=== PATIENT | female | born 1965 | race Caucasian/White ===

== ENCOUNTER → 2018-11-08 | Outpatient (CLI) | payer OTHER ==
--- NOTE | 2018-11-09 12:15 | MM ---
Reason for exam: screening (asymptomatic). Last mammogram was performed 1 year and 4 months ago. History: Patient history of other cancer. Physical Findings: A clinical breast exam by your physician is recommended on an annual basis and results should be correlated with mammographic findings. MG 3D Screening Mammo W/Cad Bilateral CC and MLO view(s) were taken. Prior study comparison: July 14, 2017, mammogram, performed at [facility]. May 27, 2016, mammogram, performed at [facility]. July 17, 2014, bilateral MG screening mammo w CAD. August 11, 2011, CAD bilateral diagnostic mammogram. The breast tissue is heterogeneously dense. This may lower the sensitivity of mammography. There is no discrete abnormality. No significant changes when compared with prior studies. ASSESSMENT: Negative, BI-RAD 1 RECOMMENDATION: Routine screening mammogram of both breasts in 1 year.
== END ==
LOC: RADMAMWWP 15:55
PROVIDERS: ATTEND Internal Medicine
DX: Z12.31 Encounter for screening mammogram for malignant neoplasm of breast (principal)
CPT/HCPCS: 77063; 77067

== ENCOUNTER → 2018-11-20 | Outpatient (CLI) | payer OTHER ==
--- NOTE | 2018-11-20 12:53 | MR ---
EXAMINATION TYPE: MR iac wo/w con DATE OF EXAM: 11/20/2018 COMPARISON: NONE HISTORY: acoustic nerve disorder left-sided and chronic sinusitis per order. Left-sided hearing loss per patient. TECHNIQUE: Multiplanar, multisequence images of the brain and brainstem is performed without and with IV contras t, utilizing 9 mL intravenous Gadavist . Acoustic nerve disorder protocol. FINDINGS: Diffusion weighted images demonstrate no evidence of a recent infarct or other diffusion ab normality. There is no worrisome extra-axial fluid collection. There is mild ventricular and sulcal prominence. There are scattered foci of T2 hyperintensity seen throughout the white matter bilaterall y. Approximately 20 small scattered lesions are seen. Lesions are nonspecific in appearance and distr ibution presumed on basis of product of chronic small vessel ischemic change in patient of this age. Midline structures demonstrate empty sella morphology. The craniocervical junction appears within no rmal limits. Normal vascular flow voids are present. Mild mucosal thickening bilateral ethmoid sinuse s is seen. Remainder paranasal sinuses are clear. Nasal septum is deviated to right of midline. There is no suspicious opacification of mastoid air cells bilaterally. Vestibulocochlear complexes ar e symmetric and felt within normal limits. There is no suspicious enhancing cerebellopontine angle ma ss identified bilaterally. IMPRESSION: 1. No significant finding seen to account for patient's left-sided hearing loss. 2. Background mild diffuse age-related cerebral atrophy and mild to moderate chronic small vessel isc hemic change. 3. Mild chronic ethmoid sinus disease.
== END | disposition home or self-care (01) ==
LOC: RADMRIMAIN 07:51
PROVIDERS: ATTEND Otolaryngology
DX: G31.1 Senile degeneration of brain, not elsewhere classified (principal); I67.82 Cerebral ischemia
CPT/HCPCS: 70553; A9585

== ENCOUNTER → 2020-04-04 | Outpatient (CLI) | payer OTHER ==
--- NOTE | 2020-04-07 10:03 | MM ---
Reason for exam: screening (asymptomatic). Last mammogram was performed 1 year and 5 months ago. History: Patient history of other cancer. Physical Findings: A clinical breast exam by your physician is recommended on an annual basis and results should be correlated with mammographic findings. MG 3D Screening Mammo W/Cad Bilateral CC and MLO view(s) were taken. Prior study comparison: November 08, 2018, bilateral MG 3d screening mammo w/cad. July 14, 2017, mammogram, performed at [facility]. The breast tissue is heterogeneously dense. This may lower the sensitivity of mammography. There is chronic nodularity in the right breast. No significant changes when compared with prior studies. ASSESSMENT: Benign, BI-RAD 2 RECOMMENDATION: Routine screening mammogram of both breasts in 1 year.
== END | disposition home or self-care (01) ==
LOC: RADMAMWWP 11:17
PROVIDERS: ATTEND Internal Medicine
DX: Z12.31 Encounter for screening mammogram for malignant neoplasm of breast (principal)
CPT/HCPCS: 77063; 77067

== ENCOUNTER → 2021-04-10 | Outpatient (CLI) | payer OTHER ==
--- NOTE | 2021-04-14 09:07 | MM ---
Reason for exam: screening (asymptomatic). Last mammogram was performed 1 year ago. History: Patient is postmenopausal and history of other cancer. Took hormonal contraceptives for 1 year. Physical Findings: A clinical breast exam by your physician is recommended on an annual basis and results should be correlated with mammographic findings. MG 3D Screening Mammo W/Cad Bilateral CC and MLO view(s) were taken. Prior study comparison: April 04, 2020, bilateral MG 3d screening mammo w/cad. November 08, 2018, bilateral MG 3d screening mammo w/cad. July 14, 2017, mammogram, performed at [facility]. There are scattered fibroglandular densities. There is chronic nodularity in the right breast. No significant changes when compared with prior studies. ASSESSMENT: Benign, BI-RAD 2 RECOMMENDATION: Routine screening mammogram of both breasts in 1 year.
== END | disposition home or self-care (01) ==
LOC: RADMAMWWP 16:35
PROVIDERS: ATTEND Internal Medicine
DX: Z12.31 Encounter for screening mammogram for malignant neoplasm of breast (principal); Z78.0 Asymptomatic menopausal state; Z85.9 Personal history of malignant neoplasm, unspecified; Z79.3 Long term (current) use of hormonal contraceptives
CPT/HCPCS: 77063; 77067

== ENCOUNTER → 2022-04-16 | Outpatient (CLI) | payer OTHER ==
--- NOTE | 2022-04-19 19:27 | MM ---
Reason for Exam: Screening (asymptomatic). Last screening mammogram was performed 12 month(s) ago. Patient History: Menarche at age 12. First Full-Term at age 27. Postmenopausal. Other cancer. Patient used Hormonal Contraceptives for 1 year. Risk Values: Megan 5 year model risk: 1.4%. NCI Lifetime model risk: 8.9%. Prior Study Comparison: 11/08/2018 Bilateral Screening Mammogram, [facility]. 04/04/2020 Bilateral Screening Mammogram, [facility]. 04/10/2021 Bilateral Screening Mammogram, [facility]. Tissue Density: There are scattered fibroglandular densities. Findings: Analyzed By CAD. Chronic nodularity upper outer quadrant right breast compatible with intramammary lymph nodes. Asymmetric density posterior medial left CC view does not persist on tomographic images. No significant change from prior exams. Overall Assessment: Benign, BI-RAD 2 Management: Screening Mammogram of both breasts in 1 year. 1. Patient should continue monthly self breast exams. 2. A clinical breast exam by your physician is recommended on an annual basis. 3. This exam should not preclude additional follow-up of suspicious palpable abnormalities. Electronically signed and approved by: Karissa Pina M.D. Radiologist
== END | disposition home or self-care (01) ==
LOC: RADMAMWWP 13:54
PROVIDERS: ATTEND Internal Medicine
DX: Z12.31 Encounter for screening mammogram for malignant neoplasm of breast (principal); Z78.0 Asymptomatic menopausal state
CPT/HCPCS: 77063; 77067

== ENCOUNTER → 2023-10-18 | Outpatient (CLI) | payer OTHER ==
[2023-10-18 15:28] VITALS: BP 120/82; PULSE 94; RESP 17; TEMP 97.9
--- NOTE | 2023-10-18 15:50 | P.HPOB ---
History of Present Illness H&P Date: 10/18/23 Chief Complaint: Patient is here for her routine gynecologic exam for This is a 58-year-old with an LMP of 2018. The patient is here to establish with this office. It has been about 1 year since her last pelvic exam. She is without gynecologic complaints and denies any postmenopausal bleeding. She previously saw Dr. Thanh Hooper for her gynecologic care. Review of Systems The patient has lost 3 pounds over the last year. She denies respiratory, cardiac, or G.I. problems. Past Medical History Past Medical History: GERD/Reflux, Hyperlipidemia, Hypertension, Thyroid Disorder Additional Past Medical History / Comment(s): HYPOTHYROIDISM. Tachycardia. PAST PLUMBING AND HEATING MECHANIC HISTORY: She has no history of STDs. History of Any Multi-Drug Resistant Organisms: None Reported Past Surgical History: Appendectomy, Hernia Repair, Tubal Ligation Additional Past Surgical History / Comment(s): PARTIAL THYROIDECTOMY, abdominal hernia repair, knee arthroscopy colonoscopy 2017(next after 10yr). Past Anesthesia/Blood Transfusion Reactions: No Reported Reaction Past Psychological History: Anxiety Smoking Status: Never smoker Past Alcohol Use History: Rare (3 drinks per year.) Past Drug Use History: None Reported Additional History: The patient has been since 1990. She currently does not work outside of the home. - Past Family History Mother Family Medical History: Diabetes Mellitus, Hyperlipidemia Father Family Medical History: Diabetes Mellitus, Renal Disease Additional Family Medical History / Comment(s): . Brother(s) Family Medical History: Diabetes Mellitus Medications and Allergies Home Medications Medication Instructions Recorded Confirmed Type Aspirin 81 mg PO DAILY 10/18/23 10/18/23 History Atorvastatin [Lipitor] 40 mg PO DAILY 10/18/23 10/18/23 History Cetirizine HCl [Zyrtec] 10 mg PO DAILY 10/18/23 10/18/23 History Cholecalciferol (Vitamin D3) 125 mg PO DAILY 10/18/23 10/18/23 History [Vitamin D3 (125 MCG = 5,000 IU)] Cinnamon Bark [Cinnamon] 500 mg PO DAILY 10/18/23 10/18/23 History Esomeprazole Magnesium [NexIUM] 40 mg PO DAILY 10/18/23 10/18/23 History Ferrous Sulfate [Iron] 235 mg PO DAILY 10/18/23 10/18/23 History Levothyroxine Sodium [Synthroid] 112 mg PO DAILY 10/18/23 10/18/23 History Magnesium 500 mg PO DAILY 10/18/23 10/18/23 History Multivitamin [Multivitamins Adult 1 tab PO DAILY 10/18/23 10/18/23 History Gummies] Kimberly-3/Dha/Epa/Fish Oil [Fish Oil 1 cap PO DAILY 10/18/23 10/18/23 History 1,000 mg Softgel] atenoloL 25 mg PO DAILY 10/18/23 10/18/23 History busPIRone HCL 5 mg PO DAILY 10/18/23 10/18/23 History lisinopriL [Zestril] 10 mg PO DAILY 10/18/23 10/18/23 History Allergies Allergy/AdvReac Type Severity Reaction Status Date / Time Penicillins Allergy Rash/Hives Unverified 10/18/23 14:38 Exam Vital Signs Temp Pulse Resp BP Pulse Ox 10/18/23 14:57 97.9 F 94 17 120/82 97 Intake and Output 10/18/23 10/18/23 10/18/23 06:59 14:59 22:59 Other: Weight 90.718 kg Height 4 feet 10 inches, weight 200 pounds, BMI 41.8. This is a well-developed well-nourished heavyset short statured female who is alert and oriented times 3 in no acute distress. HEENT: Within normal limits. NECK: Supple without mass or thyromegaly. CHEST AND LUNGS: Clear to auscultation. HEART: Regular rate and rhythm. BREASTS: Are without mass or discharge. AXILLARY EXAM: Negative for adenopathy. BACK: Negative for CVA tenderness. ABDOMEN: Soft, nontender, without palpable masses. PELVIC EXAM: Normal external genitalia with mild atrophy. Cervix and vagina appear normal with mild atrophy. There is no unusual discharge. There is no evidence of prolapse. The uterus is midposition, nongravid size and nontender. There are no palpable adnexal masses or tenderness. Bimanual examination is somewhat limited secondary to her size. RECTAL EXAM: Rectal exam was refused by the patient. EXTREMITIES: Nontender. IMPRESSION: 1. 58-year-old menopausal female with normal gynecologic exam. PLAN: 1. Pap smear cotest was performed. 2. Self breast awareness was discussed with the patient. We have also discussed symptoms associated with inflammatory breast cancer. 3. Screening mammogram was done on 04/22/2023 and was benign. She will repeat this after 1 year. The order slip was given to the patient for this. 4. Osteoporosis prevention was discussed. I have stressed the importance of adequate calcium, vitamin D and regular exercise. Recommended amounts of calcium and vitamin D were also discussed. Bone density test was done on 04/22/2023 and was normal. She will repeat the bone density test in approximate 5 years. 5. She was advised to return in one year for her annual well woman exam.
== END ==
LOC: WWCWWP 14:27
PROVIDERS: ATTEND Obstetrics & Gynecology
DX: Z78.0 Asymptomatic menopausal state (principal); Z88.0 Allergy status to penicillin

== ENCOUNTER → 2024-05-11 | Outpatient (CLI) | payer OTHER ==
--- NOTE | 2024-05-15 18:36 | MM ---
Reason for Exam: Screening (asymptomatic). Last mammogram was performed 1 year(s) and 1 month(s) ago. Patient History: Menarche at age 12. First Full-Term at age 27. Postmenopausal. Other cancer. Patient used Hormonal Contraceptives for 1 year. Risk Values: Megan 5 year model risk: 1.5%. NCI Lifetime model risk: 8.5%. Prior Study Comparison: 04/10/2021 Bilateral Screening Mammogram, [facility]. 04/16/2022 Bilateral MG 3D screening mammo w/cad, [facility]. 04/22/2023 Bilateral MG 3D screening mammo w/cad, [facility]. Tissue Density: There are scattered areas of fibroglandular density. Findings: Analyzed By CAD. Chronic nodularity right breast. There is no suspicious group of microcalcifications or new suspicious mass in either breast. Overall Assessment: Benign, BI-RAD 2 Management: Screening Mammogram of both breasts in 1 year. . Patient should continue monthly self-breast exams. A clinical breast exam by your physician is recommended on an annual basis. This exam should not preclude additional follow-up of suspicious palpable abnormalities. Note on Megan scores and lifetime risk: 1. A Megan score greater than 3% is considered moderate risk. If this is the case, consider specialist referral to assess eligibility for a risk reducing agent. 2. If overall lifetime risk for the development of breast cancer is 20% or higher, the patient may qualify for future screening with alternating mammogram and breast MRI. [facility], , 05/15/2024 6:32 PM. Electronically signed and approved by: Karissa Pina M.D. Radiologist
== END | disposition home or self-care (01) ==
LOC: RADMAMWWP 07:36
PROVIDERS: ATTEND Obstetrics & Gynecology
CPT/HCPCS: 77063; 77067